=== PATIENT | male | born 1940 | race Caucasian/White ===

== ENCOUNTER → 2017-01-02 | Outpatient (CLI) | payer MEDICARE, BC ==
[~2017-01-02] MED LIST: CARB6.5S5 EACH EAR; HYDR-3516 PO; ICAPTAB PO; LEVO150T7 PO; LISI-515 PO
[2017-01-02 09:18] LABS: ANION GAP 10 MEQ/L (5-15); AST (GOT) 16 U/L (15-37); BICARBONATE 22.7 MEQ/L (21.0-32.0); BLOOD UREA NITROGEN 18 MG/DL (7-18); CHLORIDE 104 MEQ/L (98-107); GLOMERULAR FILTRATION RATE 83 ML/MIN (>89); GLUCOSE,FASTING 93 MG/DL (74-99); POTASSIUM 4.2 MEQ/L (3.5-5.1); SODIUM (NA) 137 MEQ/L (136-145)
[2017-01-02 09:19] LABS: ALT (GPT) 28 U/L (12-78)
[2017-01-02 09:29] LABS: ALKALINE PHOSPHATASE 52 U/L (45-117); HDL CHOLESTEROL 61.8 MG/DL (40.0-60.0); LDL CHOLESTEROL 98 MG/DL (0-99); TOTAL BILIRUBIN ADULT 0.5 MG/DL (0.2-1.0)
== END ==
LOC: ELAB 07:47
PROVIDERS: ATTEND Family Medicine
DX: E03.9 Hypothyroidism, unspecified (principal); I10 Essential (primary) hypertension
CPT/HCPCS: 80053; 80061; 84443

== ENCOUNTER → 2017-07-08 | Outpatient (CLI) | payer MEDICARE, BC ==
[~2017-07-08] MED LIST changes: +ASPI-516 CHEW; -CARB6.5S5 EACH EAR; -HYDR-3516 PO
[2017-07-08 09:41] LABS: ALT (GPT) 35 U/L (12-78); AST (GOT) 21 U/L (15-37); BLOOD UREA NITROGEN 13 MG/DL (7-18); CALCIUM 9.1 MG/DL (8.5-10.1); CHLORIDE 104 MEQ/L (98-107); CHOLESTEROL 177 MG/DL (120-200); CREATININE 0.91 MG/DL (0.60-1.30); GLOMERULAR FILTRATION RATE 81 ML/MIN (>89); GLUCOSE,FASTING 107 MG/DL (74-99); SODIUM (NA) 137 MEQ/L (136-145)
[2017-07-08 09:52] LABS: ALKALINE PHOSPHATASE 63 U/L (45-117); CHOLESTEROL/ HDL RATIO 2.92 RATIO; HDL CHOLESTEROL 60.6 MG/DL (40.0-60.0); LDL CHOLESTEROL 103 MG/DL (0-99); TOTAL BILIRUBIN ADULT 0.6 MG/DL (0.2-1.0); TOTAL PROTEIN 7.6 GM/DL (6.4-8.2); TRIGLYCERIDES 67 MG/DL (42-150)
== END ==
LOC: ELAB 07:32
PROVIDERS: ATTEND Family Medicine
DX: E03.9 Hypothyroidism, unspecified (principal); Z12.5 Encounter for screening for malignant neoplasm of prostate
CPT/HCPCS: 36415; 80053; 80061; 84153; 84443